=== PATIENT | female | born 1995 | race Caucasian/White ===

== ENCOUNTER 2019-10-12 13:33 | Emergency (ER) | payer OTHER ==
[~2019-10-12] VITALS: Ht 152.4 cm; Wt 129.3 kg
[2019-10-12 13:35] VITALS: BP 152/89
--- NOTE | 2019-10-12 13:43 | NUR ---
PT AMBULATED TO BED Addendum: 10/12/19 at 1344 by [email or web address] WITH MOTHER
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
--- NOTE | 2019-10-12 14:00 | NUR ---
Patient being evaluated by AJ RIVER at bedside.
[2019-10-12] MEDS ORDERED: KETOROLAC 60 MG/2 ML VIAL IM ONE (14:05)
--- NOTE | 2019-10-12 14:21 | NUR ---
US ATC BEDSIDE.
[2019-10-12] MEDS ORDERED: HYDROcodone/APAP 7.5/325 MG 1 TAB PO ONE (14:55)
[2019-10-12] MEDS: ONDANSETRON 4 MG ODT PO ONE ×2 (15:10→15:16)
--- NOTE | 2019-10-12 15:20 | NUR ---
Patient discharged with v/s stable. Written and verbal after care instructions given and explained. Patient alert, oriented and verbalized understanding of instructions. Ambulatory with steady gait. All questions addressed prior to discharge. ID band removed. Patient advised to follow up with PMD. Rx of IBUPROFEN AND TORADOL given. Patient educated on indication of medication including possible reaction and side effects. Opportunity to ask questions provided and answered.
[2019-10-12 15:21] VITALS: BP 152/89
== END 2019-10-12 15:20 | disposition home or self-care (01) ==
LOC: MED 13:33
DX: M79.605 Pain in left leg (principal); G89.21 Chronic pain due to trauma; M54.5 Low back pain; F41.9 Anxiety disorder, unspecified; E78.00 Pure hypercholesterolemia, unspecified
CPT/HCPCS: 73590; 93971; 96372; 99284; J1885; Q0092; Q0162

== ENCOUNTER 2020-07-14 15:04 | Emergency (ER) | payer OTHER, MEDICAID ==
[~2020-07-14] VITALS: Ht 152.4 cm; Wt 132.1 kg
[2020-07-14 15:08] VITALS: BP 135/79
--- NOTE | 2020-07-14 15:51 | NUR ---
PT TAKEN TO BED 6.
--- NOTE | 2020-07-14 15:59 | NUR ---
PATIENT PRESENTS TO ED WITH /O RIGHT LEG PAIN . PT STATES IS TAKING BCP AND HAS HX OF SMOKING . DENIES N/V/D; SKIN IS PINK/WARM/DRY;RLEIS TENDER TO TOUCH AAOX4 WITH EVEN AND STEADY GAIT; LUNGS CLEAR BL; HR EVEN AND REGULAR; PT DENIES ANY FEVER, CP, SOB, OR COUGH AT THIS TIME; VSS; PATIENT POSITIONED FOR COMFORT; HOB ELEVATED; BEDRAILS UP X2; BED DOWN. ER MD MADE AWARE OF PT STATUS.
[2020-07-14] MEDS ORDERED: MORPHINE SULFATE 4 MG/ML SYR IM ONE (16:10)
--- NOTE | 2020-07-14 16:23 | NUR ---
AMBULATING TO FOR US
[2020-07-14 17:08] LABS: BASOPHILS % (AUTO) 0.5 % (0.0-2.0); EOSINOPHILS # (AUTO) 0.1 K/uL (0-0.4); EOSINOPHILS % (AUTO) 1.5 % (0.0-4.0); HEMATOCRIT 35.3 % (36-48); HEMOGLOBIN 11.6 g/dL (12.0-16.0); LYMPHOCYTES % (AUTO) 26.1 % (20.5-51.1); MEAN CORPUSCULAR HEMOGLOBIN 28 pg (27-31); MEAN CORPUSCULAR HGB CONC 33 g/dL (33-37); MEAN CORPUSCULAR VOLUME 86.2 fL (80-94); MONOCYTES # (AUTO) 0.5 K/uL (0.8-1.0); MONOCYTES % (AUTO) 6.8 % (1.7-9.3); NEUTROPHILS # (AUTO) 4.9 K/uL (1.8-7.7); NEUTROPHILS % (AUTO) 65.1 % (42.2-75.2); PLATELET COUNT (AUTO) 342 K/uL (140-450); RED CELL DISTRIBUTION WIDTH 14.1 % (11.6-13.7); WHITE BLOOD COUNT (AUTO) 7.6 K/uL (4.8-10.8)
[2020-07-14 17:24] LABS: ALBUMIN 3.2 g/dL (3.4-5.0); ANION GAP 14.3 (8-16); CARBON DIOXIDE 26.9 mmol/L (21-32); CREATININE 0.9 mg/dL (0.6-1.3); POTASSIUM 3.2 mmol/L (3.5-5.1); TOTAL BILIRUBIN 0.2 mg/dL (0.0-1.0)
[2020-07-14] MEDS ORDERED: KETOROLAC 30 MG/ML VIAL IM ONE (18:30)
--- NOTE | 2020-07-14 18:48 | NUR ---
Patient discharged with v/s stable. Written and verbal after care instructions given and explained. Patient alert, oriented and verbalized understanding of instructions. Ambulatory with steady gait. All questions addressed prior to discharge. ID band removed. Patient advised to follow up with PMD. Rx of CEPHALEXIN AND NAPROSYN given. Patient educated on indication of medication including possible reaction and side effects. Opportunity to ask questions provided and answered.
== END 2020-07-14 18:47 | disposition home or self-care (01) ==
LOC: MED 15:04
DX: N39.0 Urinary tract infection, site not specified (principal); R22.43 Localized swelling, mass and lump, lower limb, bilateral; F17.200 Nicotine dependence, unspecified, uncomplicated; F12.90 Cannabis use, unspecified, uncomplicated
CPT/HCPCS: 36415; 80053; 81002; 81025; 83880; 85025; 93971; 96372; 99284; J1885; J2270; Q0092

== ENCOUNTER 2022-07-03 13:08 | Emergency (ER) | payer OTHER, MEDICAID ==
[~2022-07-03] VITALS: Ht 152.4 cm; Wt 132.6 kg
[2022-07-03 14:27] VITALS: BP 146/99
--- NOTE | 2022-07-03 14:45 | NUR ---
BIB SELF C/O COUGH, 10/10 SORE THROAT, RUNNY NOSE X 2 DAYS. PMH: DENIES
[2022-07-03] MEDS ORDERED: GUAI237L61 PO (14:55)
[2022-07-03] MEDS ORDERED: ACET-10509 PO (14:55)
--- NOTE | 2022-07-03 16:15 | NUR ---
COVID, FLU SWABS DONE.
[2022-07-03 16:20] VITALS: BP 123/82
--- NOTE | 2022-07-03 16:20 | NUR ---
Patient discharged with v/s stable. Written and verbal after care instructions given and explained. Patient alert, oriented and verbalized understanding of instructions. Ambulatory with steady gait. All questions addressed prior to discharge. ID band removed. Patient advised to follow up with PMD. Rx of ACETAMINOPHEN, ROBITUSSIN given. Patient educated on indication of medication including possible reaction and side effects. Opportunity to ask questions provided and answered.
== END 2022-07-03 16:20 | disposition home or self-care (01) ==
LOC: MED 13:08
DX: J06.9 Acute upper respiratory infection, unspecified (principal); Z20.822 Contact with and (suspected) exposure to COVID-19; F12.90 Cannabis use, unspecified, uncomplicated; Z72.89 Other problems related to lifestyle
CPT/HCPCS: 99283